=== PATIENT | female | born 1985 | race African-American/Black ===

== ENCOUNTER 2022-09-03 10:57 | Emergency (ER) | payer OTHER ==
[2022-09-03 11:04] VITALS: BP 161/99; PULSE 84; RESP 20; TEMP 98.7; BMI 38.9
[2022-09-03] MEDS ORDERED: DEXAMETHASONE 4 MG TABLET (FP) PO ONE (12:01)
[2022-09-03] MEDS ORDERED: DEXAMETHASONE SOD PHOSPHATE 10 MG/1 ML VIAL ONE (12:04)
== END 2022-09-03 12:23 | disposition home or self-care (01) ==
LOC: JERFT 10:57
DX: J02.9 Acute pharyngitis, unspecified (principal); L04.9 Acute lymphadenitis, unspecified
CPT/HCPCS: 99283-25

== ENCOUNTER 2023-09-07 18:53 | Emergency (ER) | payer OTHER ==
[2023-09-07 19:07] VITALS: BP 132/87; PULSE 106; RESP 18; TEMP 97.9; BMI 36.8
[2023-09-07] MEDS ORDERED: DIPHTH,PERTUSS(ACELL),TET 0.5 ML DISP.SYRIN IM ONE (20:17)
[2023-09-07] MEDS ORDERED: IBUPROFEN 600 MG TABLET (FP) PO ONE (20:17)
[2023-09-07] MEDS: DIPHTH,PERTUSS(ACELL),TET 0.5 ML DISP.SYRIN IM ONE (20:22)
[2023-09-07] MEDS: IBUPROFEN 600 MG TABLET (FP) PO ONE (20:22)
== END 2023-09-07 20:24 | disposition home or self-care (01) ==
LOC: JERFT 18:53
PROC: 3E0234Z Introduction of Serum, Toxoid and Vaccine into Muscle, Percutaneous Approach (ICD-10-PCS; principal; 2023-09-07)
DX: T21.21XA Burn of second degree of chest wall, initial encounter (principal); T31.0 Burns involving less than 10% of body surface; X11.8XXA Contact with other hot tap-water, initial encounter; Y92.000 Kitchen of unspecified non-institutional (private) residence as the place of occurrence of the external cause
CPT/HCPCS: 90471; 90715; 99283-25

== ENCOUNTER 2023-10-31 18:00 | Emergency (ER) | payer OTHER ==
[2023-10-31 18:23] VITALS: BP 129/83; PULSE 105; RESP 18; TEMP 98.7; BMI 35.7
[2023-10-31] MEDS ORDERED: ERYTHROMYCIN 0.5% OPHTHALMIC OINTMENT 3.5 GM TUBE ONE (18:55)
[2023-10-31] MEDS ORDERED: FLUORESCEIN NA 1 EA STRIP ONE (18:55)
[2023-10-31] MEDS: FLUORESCEIN NA 1 EA STRIP OU ONE (19:04)
[2023-10-31] MEDS: ERYTHROMYCIN 0.5% OPHTHALMIC OINTMENT 3.5 GM TUBE OU STA (19:04)
== END 2023-10-31 19:33 | disposition home or self-care (01) ==
LOC: JERFT 18:00
DX: H57.89 Other specified disorders of eye and adnexa (principal); H10.33 Unspecified acute conjunctivitis, bilateral; J30.1 Allergic rhinitis due to pollen
CPT/HCPCS: 99283-25

== ENCOUNTER 2024-01-28 11:49 | Emergency (ER) | payer OTHER ==
[2024-01-28 12:18] VITALS: BP 119/82; PULSE 97; RESP 20; TEMP 98.7; BMI 37.5
[2024-01-28 13:23] LABS: BASO % 0.6 % (0-2.0); EOS % 3.3 % (0-4.5); HEMATOCRIT 29.6 % (32.4-45.2); HEMOGLOBIN 9.5 GM/dL (10.7-15.3); LYMPH % 34.2 % (8-40); MCH 25.8 pg (25.7-33.7); MCHC 32.1 g/dl (32.0-36.0); MEAN CELL VOLUME 80.6 fl (80-96); MEAN PLT VOLUME 7.2 fl (7.5-11.1); MONO % 6.9 % (3.8-10.2); PLATELET COUNT 315 10^3/uL (134-434); RBC 3.67 M/mm3 (3.60-5.2); RDW 16.7 % (11.6-15.6); WHITE BLOOD COUNT 8.9 K/mm3 (4.0-10.0)
[2024-01-28 13:48] LABS: ALBUMIN 3.2 g/dl (3.4-5.0); BLOOD UREA NITROGEN 18.6 mg/dL (7-18); CALCIUM 8.8 mg/dL (8.5-10.1)
[2024-01-28 13:55] LABS: BILIRUBIN,TOTAL 0.1 mg/dL (0.2-1); CREATININE 1.1 mg/dL (0.55-1.3); TOT PROT 7.4 g/dl (6.4-8.2)
[2024-01-28 14:03] LABS: N-TERMINAL BNP 53.6 pg/ml (5-125)
== END 2024-01-28 15:50 | disposition home or self-care (01) ==
LOC: JER 11:49
DX: M25.471 Effusion, right ankle (principal); M25.472 Effusion, left ankle
CPT/HCPCS: 36415; 71046-TC-FY; 80053; 83880; 84484; 85025; 93005; 93010; 99285-25